=== PATIENT | female | born 1975 | race Caucasian/White ===

== ENCOUNTER 2018-04-20 13:02 | Inpatient (IN) | payer OTHER ==
[~2018-04-20] VITALS: Ht 177.8 cm; Wt 111.1 kg
--- NOTE | ~2018-04-20 | H ---
[facility] [address] [address] HISTORY AND PHYSICAL Name: REMI CARRIZALES Room #: 170-11 ADM IN M.R.#: [id number] Admission: 04/20/18 Attend Phys: Dillan Ureña MD Discharge: Date of : 75 Report #: [id number] THIS REPORT FOR: //name// CC: Dillan Ureña [facility] physician/PCP DATE OF SERVICE: 04/20/2018 REASON FOR CONSULTATION: Abdominal pain, nausea and vomiting. HISTORY OF PRESENT ILLNESS: This is a 42-year-old who was admitted to the hospital around the time of Nicky. She is known to have pancreatic stricture diagnosed recently. The history started back in [place] about 3 years ago when she had a gallbladder pancreatitis with pancreatic pseudocyst. She ended up moving to [place] and had her gallbladder taken in [place]. She had an acute pancreatitis episode back in 03/2018 and the MRI revealed very significant pancreatic stricture with pancreatic duct dilatation. She had ductal dilatation present on her studies. She was supposed to have an endoscopic ultrasound done, but this has not been done yet. Because of her persistent nausea and vomiting, she presented to the emergency room to get further evaluation. She denies any fever or chills. She was unable to take her blood pressure medication and her blood pressure has been on the high side. PAST MEDICAL HISTORY: 1. Pancreatitis with pancreatic stricture. 2. Hypertension. 3. Depression. 4. Status post cholecystectomy. 5. Pseudocysts. 6. Kidney stones in the past. MEDICATIONS: 1. Pepcid. 2. Amlodipine. 3. Zoloft. ALLERGIES: None. FAMILY HISTORY: Mom and dad had hypertension. SOCIAL HISTORY: She denies drug or alcohol abuse. She works as a counselor. REVIEW OF SYSTEMS: GENERAL: No fever or chills. CARDIOVASCULAR: No chest pain or palpitation. PULMONARY: No cough or hemoptysis. [facility] [address] [place] [address] HISTORY AND PHYSICAL Name: REMI CARRIZALES Room #: [facility] ADM IN [facility].#: [id number] Admission: 04/20/18 Attend Phys: Dillan Ureña MD Discharge: Date of : 75 Report #: [id number] GASTROINTESTINAL: As per the history of present illness. GENITOURINARY: No frequency or urgency. MUSCULOSKELETAL: No back pain, no morning stiffness. PHYSICAL EXAMINATION: VITAL SIGNS: Temperature 37.6, blood pressure initially was 192/123, pulse rate was 70, respiratory rate 16. HEAD AND NECK: No jugular venous distention, no bruit, no thyromegaly. CHEST: No crackles. CARDIOVASCULAR: No rub detected. ABDOMEN: Soft, nontender with slight epigastric tenderness, no guarding, no rigidity. Active bowel sounds. EXTREMITIES: Lower extremities, no edema with intact peripheral pulses. SKIN: No rash or ulcerations. NEUROLOGICAL: Intact cranial nerves. HEMATOLOGICAL: No lymph node enlargement. No organomegaly. LABORATORY DATA: Reviewed. Glucose is 119, potassium is 3.4, lipase is 170. White blood cell count 5.2. UA is completely unremarkable. ASSESSMENT, IMPRESSION AND PLAN: 1. Pancreatic stricture with no evidence of pancreatitis. 2. Status post cholecystectomy. 3. Persistent nausea and vomiting. 4. Hypertension. 5. We will admit the patient for conservative management of her nausea and vomiting. 6. P.r.n. pain medications. 7. Routine gastrointestinal and deep vein thrombosis prophylaxis. 8. Resume her blood pressure and her depression medications. 9. The patient is in need for an endoscopic ultrasound and is supposed to have that done in [facility]. Could arrange for hospital to hospital transfer to save the patient some time trying to get into the [facility]. By: [id number] Dillan Ureña MD /nt
[~2018-04-20 13:02] MED LIST: ACCUPRIL40 MG PO; AMOXICILLIN 50500 MG PO; BACTRIM DS TAB1 EACH PO; CENTRUM SILVER1 EAC4 PO; CLONIDINE1 EAC1 TRANSDERM; FLEXERIL PO; FLOMAX0.4 MG PO; HYDROCODON-ACE1 EAC7 PO; IBUPROFEN 600600 M1 PO; IBUPROFEN 800800 M1 PO; LISINOPRIL20 MG PO; NEXIUM; NEXIUM20 MG PO; NORCO 5-325 TA1 EACH PO; NORVASC10 MG PO; ONDANSETRON HCL4 M2 PO; PEPCID20 MG PO; PERCOCET 5-3251 EACH PO; SERTRALINE HCL50 MG PO; TRAMADOL 50 MG50 MG PO; ZANTAC 150MG T150 MG PO; ZOFRAN ODT4 MG PO
[2018-04-20 13:04] VITALS: BP 192/123
--- NOTE | 2018-04-20 13:26 | NUR ---
DYLAN MARTINEZ EXAMINING PT. AT THIS TIME
[2018-04-20 13:33] LABS: ABSOLUTE NEUTROPHILS 3.3 thou/uL (1.4-8.2); BASOPHILS 0.4 % (0.0-2.0); EOSINOPHILS 1.5 % (0.0-3.0); HEMATOCRIT 41.8 % (37.0-47.0); HEMOGLOBIN 14.2 gm/dL (12.0-15.0); LYMPHOCYTES 27.3 % (24.0-44.0); MCH 29.1 pg (26.0-34.0); MCV 85.4 fL (80.0-100.0); PLATELET COUNT 260 thou/uL (150-400); POLYS 63.8 % (36.0-66.0); RBC 4.89 mil/uL (4.20-5.00); RDW 14.9 % (10.5-14.5); WBC 5.2 thou/uL (4.0-11.0)
[2018-04-20 13:35] LABS: URINE BILIRUBIN NEGATIVE (Negative); URINE BLOOD NEGATIVE (Negative); URINE CLARITY CLEAR; URINE COLOR YELLOW; URINE GLUCOSE-RANDOM* NEGATIVE (Negative); URINE KETONES NEGATIVE (Negative); URINE LEUKOCYTES-REFLEX NEGATIVE (Negative); URINE NITRITE-REFLEX NEGATIVE (Negative); URINE PROTEIN (DIPSTICK) NEGATIVE (Negative); URINE UROBILINOGEN 0.2 E.U./dl (0.2-1.0)
[2018-04-20 13:44] LABS: CALCIUM 9.4 mg/dL (8.5-10.1); CREATININE 0.7 mg/dL (0.6-1.0); POTASSIUM 3.4 mmol/L (3.5-5.1)
[2018-04-20 13:49] LABS: ALBUMIN 3.7 g/dL (3.4-5.0); TOTAL BILIRUBIN 0.3 mg/dL (<0.1-1.0); TOTAL PROTEIN 7.8 g/dL (6.4-8.2)
--- NOTE | 2018-04-20 14:41 | NUR ---
pt. with episode of emesis. di darnell made aware
[2018-04-20 19:34] VITALS: BP 125/67
[2018-04-20 19:57] VITALS: BP 125/67
[2018-04-20 20:16] VITALS: BP 154/95
[2018-04-21 03:30] VITALS: BP 152/90
[2018-04-21 05:48] LABS: HEMATOCRIT 38.5 % (37.0-47.0); HEMOGLOBIN 12.7 gm/dL (12.0-15.0); MCH 28.6 pg (26.0-34.0); MCV 86.4 fL (80.0-100.0); RBC 4.45 mil/uL (4.20-5.00); RDW 15.2 % (10.5-14.5); WBC 5.4 thou/uL (4.0-11.0)
[2018-04-21 06:21] LABS: ALBUMIN 2.9 g/dL (3.4-5.0); CALCIUM 8.5 mg/dL (8.5-10.1); CREATININE 0.7 mg/dL (0.6-1.0); POTASSIUM 3.8 mmol/L (3.5-5.1); TOTAL BILIRUBIN 0.2 mg/dL (<0.1-1.0); TOTAL PROTEIN 6.4 g/dL (6.4-8.2)
[2018-04-21 07:57] VITALS: BP 152/97
--- NOTE | 2018-04-21 08:09 | NUR ---
Received pt from ED at 2144. Pt came for pancreatitis. She needs to have a Endoscopy ultrasound done which is not avaliable at [facility]. We just treating her for the N/V. Pt is AOX4. Gave her 1 bag of potassium. G.I will not be consulted. IV is on L AC. No identified needs at the moment. Will continue to monitor.
[2018-04-21] MEDS ORDERED: NORCO 10-325 T1 EACH PO (09:51)
[2018-04-21] MEDS ORDERED: TRAMADOL 50 MG50 MG PO (09:51)
[2018-04-21 09:59] VITALS: BP 152/97
[2018-04-21] MEDS ORDERED: ZOFRAN ODT4 MG DISSOLVE (10:01)
--- NOTE | 2018-04-21 11:00 | NUR ---
DIS PT IS FOR DC. IV DC'D. MED SCRIPT AND DC PACKET PROVIDED.
== END 2018-04-21 12:23 | disposition home or self-care (01) | DRG 440 ==
LOC: ER 13:02 → EROBS 16:04 → 4W 20:03 → ENTRNSPT 04-21 10:54 → EDTRNSPTSTS 04-21 10:58 → 4W 04-21 12:23
PROVIDERS: Physician Assistant; ADMIT Hospitalist
DX: K86.89 Other specified diseases of pancreas (principal); I10 Essential (primary) hypertension; E87.6 Hypokalemia; E66.9 Obesity, unspecified; F32.9 Major depressive disorder, single episode, unspecified; Z68.35 Body mass index [BMI] 35.0-35.9, adult; Z90.49 Acquired absence of other specified parts of digestive tract; Z87.442 Personal history of urinary calculi; Z79.899 Other long term (current) drug therapy; Z82.49 Family history of ischemic heart disease and other diseases of the circulatory system
CPT/HCPCS: 10040

== ENCOUNTER 2020-09-07 15:54 | Emergency (ER) | payer OTHER ==
[~2020-09-07] VITALS: Ht 177.8 cm; Wt 108.9 kg
[~2020-09-07 15:54] MED LIST changes: +NORCO 10-325 T1 EACH PO; +ZOFRAN ODT4 MG DISSOLVE
[2020-09-07 16:24] LABS: URINE BILIRUBIN 2+ (Negative); URINE BLOOD NEGATIVE (Negative); URINE CLARITY CLEAR; URINE COLOR YELLOW; URINE GLUCOSE-RANDOM* NEGATIVE (Negative); URINE KETONES TRACE (Negative); URINE LEUKOCYTES-REFLEX NEGATIVE (Negative); URINE NITRITE-REFLEX NEGATIVE (Negative); URINE PROTEIN (DIPSTICK) 2+ (Negative); URINE SPECIFIC GRAVITY >= 1.030 (1.005-1.035)
[2020-09-07 16:29] LABS: BACTERIA-REFLEX None Seen /HPF (None Seen); SQUAMOUS >10 Many /LPF (0-3); URINE RBC None Seen /HPF (NONE SEEN); URINE WBC-REFLEX None Seen /HPF (0-5)
[2020-09-07 16:30] LABS: CRYSTALS None Seen /LPF (None Seen)
[2020-09-07 16:31] LABS: ICTOTEST (BILI CONFIRMATORY) Negative (Negative); MUCUS >6 Heavy strn/LPF (None Seen); URIC ACID CRYSTALS 0-3 Few /LPF (None Seen)
[2020-09-07 17:06] LABS: ABSOLUTE NEUTROPHILS 10.5 thou/uL (1.4-8.2); BASOPHILS 0.4 % (0.0-2.0); EOSINOPHILS 0.8 % (0.0-3.0); HEMATOCRIT 39.6 % (37.0-47.0); HEMOGLOBIN 13.3 gm/dL (12.0-15.0); LYMPHOCYTES 16.5 % (24.0-44.0); MCH 27.5 pg (26.0-34.0); MCHC 33.7 g/dL (28.0-37.0); MCV 81.6 fL (80.0-100.0); MONOCYTES 5.5 % (1.0-8.0); PLATELET COUNT 304 thou/uL (150-400); POLYS 76.8 % (36.0-66.0); RBC 4.85 mil/uL (4.20-5.00); RDW 14.9 % (10.5-14.5); WBC 13.7 thou/uL (4.0-11.0)
[2020-09-07 17:13] LABS: CALCIUM 9.6 mg/dL (8.5-10.1); POTASSIUM 3.2 mmol/L (3.5-5.1)
[2020-09-07 17:20] LABS: ALBUMIN 4.1 g/dL (3.4-5.0); TOTAL BILIRUBIN 0.4 mg/dL (0.2-1.0); TOTAL PROTEIN 8.1 g/dL (6.4-8.2)
[2020-09-07 19:44] LABS: AMP/METHAMP Negative (Negative); BARBITURATES Negative (Negative); BENZODIAZEPINES Negative (Negative); COCAINE Negative (Negative); METHADONE Negative (Negative); OPIATES POSITIVE (Negative); PCP Negative (Negative)
[2020-09-07] MEDS ORDERED: PHENERGAN 25 MG25 M1 PO (19:57)
[2020-09-07] MEDS ORDERED: PROMS25 WY RECTAL (19:57)
[2020-09-07 20:11] VITALS: BP 199/119
== END 2020-09-07 20:13 | disposition home or self-care (01) ==
LOC: ER 15:54
PROVIDERS: Physician Assistant
DX: R10.13 Epigastric pain (principal); R11.2 Nausea with vomiting, unspecified; I10 Essential (primary) hypertension; Z90.49 Acquired absence of other specified parts of digestive tract; Z87.442 Personal history of urinary calculi; Z79.899 Other long term (current) drug therapy